=== PATIENT | female | born 2000 | race Caucasian/White ===

== ENCOUNTER 2022-09-21 22:55 | Emergency (ER) | payer MEDICAID ==
[~2022-09-21] VITALS: Ht 170.2 cm; Wt 77.1 kg
--- NOTE | 2022-09-21 23:21 | NUR ---
Arrived to room 5 and monitors applied. C/o pain in the upper left back that radiates with movement. Vital signs stable. Notified Dr. Diaz of patient's arrival. Family x 1 at the bedside.
--- NOTE | 2022-09-21 23:28 | ER.PDOC ---
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 This evening had spasms in her L upper ba ck/ribcage area without known trauma other than the exertions, occurred after finally relaxing for the evening. Timing/Duration: this evening Severity/Quality: moderate Radiation: other (at times to front of chest around ribcage, without radicular character) Associated Symptoms: muscle spasms Past Medical History Medical History: other (no others) Family History Significant Family History: no pertinent family hx Social History Smoking: non-smoker Reviewed Nursing Reviewed: Vital Signs, Abn. Noted, Nursing Assessment Review of Systems Constitutional: no symptoms reported EENTM: no symptoms reported Respiratory: no symptoms reported, see HPI Cardiovascular: see HPI Gastrointestinal: no symptoms reported Genitourinary: no symptoms reported Musculoskeletal: see HPI Skin: no symptoms reported Psychiatric/Neurological: no symptoms reported All Other Systems: Reviewed and Negative Physical Exam General Appearance: Mild Distress Neck: Normal Alignment Cardiovascular/Respiratory: Regular Rate, Rhythm Gastrointestinal: Normal Bowel Sounds, Non Tender Back: Muscle Spasm (L posterior ribcage. no suggestion of point tenderness.) Extremities: No Evidence of Injury Neuro/Psych: Alert, mood/effect nml, No Motor/Sensory Deficits Skin: Normal Color Results/Orders Results/Orders Orders - MELINDA ALEMAN MD Urinalysis (09/21/22 23:23) Hcg Urine (09/21/22 23:23) Xr Ribs Lt W/Cxr (09/21/22 23:54) Vital Signs Date Time Temp Pulse Resp B/P (MAP) Pulse Ox O2 Delivery O2 Flow Rate FiO2 09/21/22 23:45 98.2 78 14 137/84 (101) 99 Room Air* 0 21 09/21/22 23:43 98.2 78 18 09/21/22 23:38 98.2 78 14 99 Laboratory Tests Test 09/21/22 23:22 Urine Collection Type RANDOM Urine Color YELLOW Urine Appearance CLEAR Urine Bilirubin NEGATIVE (NEGATIVE) Urine Ketones NEGATIVE (NEGATIVE) Urine Specific [place] 1.025 (1.005-1.030) Urine pH 7.0 (4.5-8.0) Urine Protein NEGATIVE (NEGATIVE) Urine Urobilinogen 0.2 E.U./dL (0.2) Urine Nitrate NEGATIVE (NEGATIVE) Urine Leukocyte Esterase NEGATIVE (NEGATIVE) Urine Glucose (Auto)(UA) NEGATIVE (NEGATIVE) Urine Blood NEGATIVE (NEGATIVE) Urine HCG, Qualitative NEGATIVE (NEGATIVE) Progress Progress MDM X-rays: NAD to my eye, NAD to overread. I am not minded to do cardiac or VTE-focused workup with this clinical picture and such clear cut muscle spasms. We will treat symptomatically with naproxen and methocarbamol. ER DEPART Departure Time of Disposition: 00:17 Disposition: 01 HOME / SELF CARE / HOMELESS Impression: Primary Impression: Spasm of thoracic back muscle Condition: Stable Patient Instructions: Muscle Cramps, Muscle Cramps, [id number] Referrals: PCP,UNKNOWN (PCP) PRIMARY CARE PROVIDER Additional Instructions: Medications as directed. Return if symptoms significantly worsen, otherwise follow up in clinic. Duration or Time Spent with Pa: 10 min MELINDA ALEMAN MD Sep 21, 2022 23:28
[2022-09-21 23:38] VITALS: BP 137/84; PULSE 78; RESP 14; TEMP 98.2; O2SAT 99
[2022-09-21 23:43] VITALS: BP 137/84; PULSE 78; RESP 18; TEMP 98.2
[2022-09-21 23:45] VITALS: BP 137/84; PULSE 78; RESP 14; TEMP 98.2; O2SAT 99
[2022-09-21 23:50] LABS: BILIRUBIN,URINE NEGATIVE (NEGATIVE); UROBILINOGEN,URINE 0.2 E.U./dL (0.2)
[2022-09-22] MEDS ORDERED: METHOCARBAMOL PO STA (00:11)
[2022-09-22] MEDS ORDERED: NAPROXEN 500MG PO STA (00:11)
[2022-09-22] MEDS ORDERED: ROBAXIN ONE (00:19)
--- NOTE | 2022-09-22 00:19 | DIREP ---
PROCEDURE:XRAY RIBS W/PA CHEST [id number] COMPARISON:None. INDICATIONS:L posterior ribcage pain/chest discomfort TECHNIQUE:PA chest and four views of the left ribs FINDINGS: LEFT RIBS:No fracture. LUNGS/PLEURA: No significant pulmonary parenchymal abnormalities. No pneumothorax. CARDIAC: Normal size cardiac silhouette and normal vascularity. MEDIASTINUM: Normal. BONES: Normal. OTHER: No additional findings. CONCLUSION:Normal chest. No rib fractures are identified. Dictated by: Dominic Asencio M.D. on 09/22/2022 at 00:16 AM
[2022-09-22] MEDS ORDERED: NAPROXEN 500MG PO ONE (00:20)
== END 2022-09-22 00:35 | disposition home or self-care (01) ==
LOC: ER 22:55
DX: M62.830 Muscle spasm of back (principal)
CPT/HCPCS: 99284; 71101; 81003; 81025; J2800